=== PATIENT | female | born 1985 | race African-American/Black ===

== ENCOUNTER → 2020-06-03 | Emergency (ER) | payer MEDICAID ==
[~2020-06-03] VITALS: Ht 177.8 cm; Wt 130.2 kg
[~2020-06-03] MED LIST: IOHEXOL 300 MG/ML 100ML BOTTLE IJ ONE; cefTRIAXone W LIDOCAINE 1 GM IM IM ONE; cloNIDine HCL 0.1 MG TAB PO ONE; methylPREDNISolone SOD SUCC 125 MG/2 ML VL IM ONE
[2020-06-03 07:42] LABS: Basophils # (auto) 0 10 ^3/uL (0-0.2); Mean Corpuscular Hgb Conc. 31.9 g/dL (32.0-36.0); Monocytes # (auto) 0.5 10 ^3/uL (0-1.3)
[2020-06-03 07:44] LABS: Basophils % (auto) 0.2 % (0.0-2.0); Eosinophils # (auto) 0.2 10 ^3/uL (0-0.8); Eosinophils % (auto) 2.4 % (0.0-7.0); Hematocrit 38.3 % (36.0-46.0); Hemoglobin 12.2 g/dL (12.2-16.2); Lymphocytes # (auto) 2.5 10 ^3/uL (0.4-5.4); Lymphocytes % (auto) 35.1 % (10.0-50.0); Mean Corpuscular Hemoglobin 23.1 pg (28.0-32.0); Mean Corpuscular Volume 72.3 fL (80.0-100.0); Monocytes % (auto) 6.6 % (0.0-12.0); Neutrophils # (auto) 3.9 10 ^3/uL (1.6-8.6); Neutrophils % (auto) 55.7 % (37.0-80.0); Nucleated Red Blood Cells % 0.1 %; Platelet Count (auto) 334 10^3/uL (140-450); Red Cell Distribution Width 16.5 % (11.8-14.3)
[2020-06-03 08:03] LABS: Albumin 3.5 g/dL (3.4-5.0); Calcium 8.5 mg/dL (8.5-10.1); Potassium 3.8 mmol/L (3.5-5.1)
[2020-06-03 08:06] LABS: BUN/Creatinine Ratio 13.7; Bilirubin, Total 0.3 mg/dL (0.2-1.0); Total Protein 8.5 g/dL (6.4-8.2)
[2020-06-03 08:44] VITALS: BP 144/92
== END | disposition home or self-care (01) ==
LOC: ER 06:22
DX: H05.011 Cellulitis of right orbit (principal); I10 Essential (primary) hypertension
CPT/HCPCS: 36415; 70486; 80053; 85025; 96372; 99284; J0696; J2930

== ENCOUNTER 2023-09-05 11:16 | Emergency (ER) | payer MEDICAID, OTHER ==
[~2023-09-05] VITALS: Ht 177.8 cm; Wt 122.0 kg
[2023-09-05 11:20] VITALS: BP 136/75; PULSE 117; RESP 16; O2SAT 97
[2023-09-05] MEDS ORDERED: AMIODARONE BOLUS KIT 100 ML IV ONE (11:25)
[2023-09-05] MEDS ORDERED: AMIODARONE 450mg/250ml AE 250 ML IV ONE (11:29)
[2023-09-05] MEDS ORDERED: AMIODARONE 450mg/250ml AE 250 ML IV SCH (11:32)
[2023-09-05] MEDS ORDERED: EPINEPHrine HCL 250 ML IV ONE (11:47)
[2023-09-05] MEDS ORDERED: HYDROCORTISONE SOD SUCC 100 MG/2ML INJ VIAL IV ONE (12:00)
[2023-09-05] MEDS ORDERED: EPINEPHrine HCL 1 MG/10 ML SYRG ONE (12:05)
[2023-09-05 12:44] LABS: Hemoglobin 9.5 g/dL (12.2-16.2)
[2023-09-05 12:46] LABS: Hematocrit 33.6 % (36.0-46.0); Mean Corpuscular Hemoglobin 20.7 pg (28.0-32.0); Mean Corpuscular Hgb Conc. 28.3 g/dL (32.0-36.0); Mean Corpuscular Volume 73.1 fL (80.0-100.0); Red Cell Distribution Width 18.7 % (11.8-14.3); White Blood Cell 9.6 10^3/uL (4.4-10.8)
[2023-09-05 12:57] LABS: Albumin 3.4 g/dL (3.2-4.8); Alkaline Phosphatase 41 U/L (46-116); Anion Gap 19 (5-15); Aspartate Aminotransferase 82 U/L (13-40); Bilirubin, Total 0.2 mg/dL (0.2-1.0); Calcium 8.1 mg/dL (8.7-10.4); Carbon Dioxide 15 mmol/L (20-30); Chloride 100 mmol/L (98-107); Magnesium 2.1 mg/dL (1.6-2.6); Sodium 134 mmol/L (136-145)
[2023-09-05 13:00] LABS: Band Neutrophils % (manual) 0; Basophils % (manual) 0 (0.0-2.0); Blast Cells 0; Metamyelocytes % 0; Promyelocytes % 0; Reactive Lymphocytes 0
[2023-09-05 13:02] LABS: Glucose 529 mg/dL (74-106)
[2023-09-05] MEDS ORDERED: EPINEPHrine HCL 250 ML IV SCH (13:15)
[2023-09-05] MEDS ORDERED: MIDAZOLAM DRIP 50 mg/50mL 50 ML IV SCH (13:30)
[2023-09-05] MEDS ORDERED: NITROGLYCERIN 0.4 MG SL TAB SL PRN (13:30)
[2023-09-05] MEDS ORDERED: SODIUM BICARBONATE 8.4 % INJ 50ML VIAL IV ONE ×2 (13:30)
[2023-09-05] MEDS ORDERED: SODIUM CHLORIDE 0.9% 1,000 ML IV SCH (13:30)
[2023-09-05] MEDS ORDERED: fentaNYL Drip 2500mCg/250mlNS 250 ML IV SCH (13:30)
[2023-09-05] MEDS ORDERED: MORPHINE SULFATE INJ 2 MG/ml SYRG IV PRN (13:30)
[2023-09-05] MEDS ORDERED: DEXTROSE (50%) 50ML SYRG IV PRN (13:30)
[2023-09-05] MEDS ORDERED: MIDAZOLAM DRIP 50 mg/50mL 0 ML IV ONE (13:37)
[2023-09-05] MEDS ORDERED: PROPOFOL 100 ML IV ONE (13:39)
[2023-09-05] MEDS ORDERED: PROPOFOL 100 ML IV SCH (13:45)
[2023-09-05 13:51] LABS: Urine Bacteria NONE SEEN /hpf (None Seen); Urine Blood 2+ /uL (Negative); Urine Clarity HAZY (Clear); Urine Color Colorless (Yellow); Urine Protein, UAD 3+ (Negative); Urine Specific Gravity 1.007 (1.001-1.035); Urine Urobilinogen Normal (Negative); Urine WBC 26 /hpf (0 - 5); Urine pH 7.5 (5.0-8.0)
[2023-09-05 14:08] LABS: Amphetamine Screen, Urine Neg (NEGATIVE); Barbiturate Scree,Urine Neg (NEGATIVE); Benzodiazephine Screen, Urine Neg (NEGATIVE); Cannabinoid Screen, Urine Neg (NEGATIVE); Cocaine Screen, Urine Neg (NEGATIVE); Opiate Scree,Urine Neg (NEGATIVE); Phencyclidine Screen, Urine Neg (NEGATIVE)
[2023-09-05 14:09] LABS: Eosinophils % (manual) 1 (0-7); Hypochromia Marked; Lymphocytes % (manual) 51 (10.0-50.0); Monocytes % (manual) 10 (0-12); Myelocytes % 2; Platelet Estimate Adequate
[2023-09-05 14:23] LABS: Alanine Aminotransferase 53 U/L (7-40); BUN/Creatinine Ratio 8.3 (10.0-20.0); Blood Urea Nitrogen 10 mg/dL (9-23)
[2023-09-05] MEDS ORDERED: levETIRAcetam 1000 mg/100ml 100 ML IV ONE (15:00)
[2023-09-05] MEDS ORDERED: DexAMETHasone SOD PHOS 10MG/1ML VIAL INJ IV ONE (15:00)
[2023-09-05] MEDS ORDERED: PIPERACILLIN-TAZOB 3.375GM 100 ML IV ONE (15:00)
[2023-09-05 15:23] VITALS: O2SAT 94
[2023-09-05 15:24] VITALS: BP 131/62; PULSE 135; RESP 20; O2SAT 100
[2023-09-05 15:28] LABS: Alanine Aminotransferase 398 U/L (7-40); Albumin 4.8 g/dL (3.2-4.8); Alkaline Phosphatase 120 U/L (46-116); Anion Gap 16 (5-15); Aspartate Aminotransferase 660 U/L (13-40); BUN/Creatinine Ratio 9.9 (10.0-20.0); Bilirubin, Total 0.4 mg/dL (0.2-1.0); Blood Urea Nitrogen 12 mg/dL (9-23); Calcium 9.6 mg/dL (8.7-10.4); Carbon Dioxide 16 mmol/L (20-30); Chloride 106 mmol/L (98-107); Glucose 114 mg/dL (74-106); Sodium 138 mmol/L (136-145); Total Protein 8.8 g/dL (5.7-8.2)
[2023-09-05 15:28] LABS: Lactic Acid w/Reflex 9.9 mmol/L (0.4-2.0)
[2023-09-05 15:36] LABS: Potassium 2.3 mmol/L (3.5-5.1)
[2023-09-05] MEDS ORDERED: ACCU-CHEK COMFORT CURVE STRIP VI SCH (16:00)
[2023-09-05] MEDS ORDERED: InsuLIN REG 1unit/0.01ml Soln (100units/ml) SC SCH (16:00)
[2023-09-05 16:40] VITALS: BP 123/87; PULSE 126; RESP 16; TEMP 97.1; O2SAT 100
== END 2023-09-05 17:02 | disposition short-term general hospital (02) ==
LOC: EDUNIT# 11:16 → ER 11:16 → EDBD 11:16 → ER 17:02
DX: I46.9 Cardiac arrest, cause unspecified (principal); I49.01 Ventricular fibrillation; I60.9 Nontraumatic subarachnoid hemorrhage, unspecified; J18.1 Lobar pneumonia, unspecified organism; I16.1 Hypertensive emergency; R41.82 Altered mental status, unspecified; Z32.02 Encounter for pregnancy test, result negative; Z79.899 Other long term (current) drug therapy
CPT/HCPCS: 31500; 36415; 36556; 36600; 70450; 71045; 71250; 72125; 74176; 80053; 80307; 81001; 81025; 82010; 82805; 83605; 83735; 84484; 85007; 85027; 87040; 87070; 87205; 92950; 93005; 93306; 96365; 96366; 96375; 99291; J0171; J0282; J1100; J1720; J1953; J2704; J2250